=== PATIENT | male | born 1990 | race Caucasian/White ===

== ENCOUNTER 2024-03-06 14:47 | Emergency (ER) | payer OTHER, SELFPAY ==
[2024-03-06 14:56] VITALS: BP 162/100
--- NOTE | 2024-03-06 17:09 | ED.GENMED ---
History of Present Illness
<Little Koroma PA-C - Last Filed: 03/06/24 19:00>
General
Chief Complaint: Headache
Source: patient
Exam Limitations: none
Time Seen by Provider: 03/06/24 17:08
Nursing documentation reviewed up to this point in time: agreed with
Travel History
Have you had any contact with someone who has COVID-19?: No
Do you have any symptoms of coronavirus? Fever > 100 degrees, chills, cough, shortness of breath, sore throat, loss of taste or smell, muscle aches, or headache?: No
History of Present Illness
History of Present Illness:
33-year-old male no past medical history in emergency department today with bilateral temporal swelling and discomfort for the past few months. Patient states that its gotten worse the past few weeks. Patient states that he has been getting over a
viral respiratory infection for the past few months he states that he has had persistent symptoms. Patient states that he no longer has a cough states that he has occasional congestion. Patient states that when he feels the swelling most when he
is chewing. Patient states that he noticed swelling in the mirror as well. Patient denies any temporal pain. Patient also states that he has mild pain by his right eye, feels a pressure. Patient states he developed a headache today. Patient
does not follow with a primary care provider. Patient denies any shortness of breath, chest pain, abdominal pain, nausea, vomiting, dizziness, lightheadedness. Patient denies any medical history, takes no medications daily. Patient states that he
does grind his teeth at night and thinks that his temporal discomfort may be related to this. Patient has no medication allergies.
Review of Systems
<Little Koroma PA-C - Last Filed: 03/06/24 19:00>
Review of Systems
All Other Systems: ROS reviewed and negative except as documented in HPI and ROS
Phy Exam
<Little Koroam PA-C - Last Filed: 03/06/24 19:00>
Physical Exam
Physical Exam:
General: Patient is well-appearing no acute distress
Skin: Warm and dry, no rashes or lesions
Head: Normocephalic, atraumatic. No obvious soft tissue swelling at the temporal areas. No tenderness to palpation of the temporal arteries. No tenderness palpation of the bones of the skull. No facial tenderness.
Eyes: EOMs intact, PERRLA. No scleral injection. Conjunctiva clear bilaterally.
Throat: No pharyngeal erythema, no tonsillar hypertrophy, no tonsillar exudates.
Cardiac: Regular rate and rhythm, no murmurs
Pulm: Normal respiratory effort.
Neuro: CN II-XII intact, no focal neurologic deficit.
Course
<Little Koroma PA-C - Last Filed: 03/06/24 19:00>
Orders/Labs/Results
Orders:
Orders
03/06/24 17:30
CT Head W/o Iv Contrast Urgent
Comment:
Reason For Exam: right eye pressure, temporal pain and fullness
CT Sinuses W/o Iv Contrast Urgent
Comment:
Reason For Exam: right eye pressure, temporal pain and fullness
Vital Signs
Initial and Last Documented VS:
Initial Vital Signs
Temp Pulse Resp BP Pulse Ox
98.2 F 96 18 162/100 99
03/06/24 14:56 03/06/24 14:56 03/06/24 14:56 03/06/24 14:56 03/06/24 14:56
Last Documented Vital Signs
Temp Pulse Resp BP Pulse Ox
98.2 F 96 18 162/100 99
03/06/24 14:56 03/06/24 14:56 03/06/24 14:56 03/06/24 14:56 03/06/24 14:56
<Kevon Ashraf DO - Last Filed: 03/06/24 18:50>
Orders/Labs/Results
Orders:
Orders
03/06/24 17:30
CT Head W/o Iv Contrast Urgent
Comment:
Reason For Exam: right eye pressure, temporal pain and fullness
CT Sinuses W/o Iv Contrast Urgent
Comment:
Reason For Exam: right eye pressure, temporal pain and fullness
Vital Signs
Initial and Last Documented VS:
Initial Vital Signs
Temp Pulse Resp BP Pulse Ox
98.2 F 96 18 162/100 99
03/06/24 14:56 03/06/24 14:56 03/06/24 14:56 03/06/24 14:56 03/06/24 14:56
Last Documented Vital Signs
Temp Pulse Resp BP Pulse Ox
98.2 F 96 18 162/100 99
03/06/24 14:56 03/06/24 14:56 03/06/24 14:56 03/06/24 14:56 03/06/24 14:56
<Little Koroma PA-C - Last Filed: 03/06/24 19:00>
MDM/Problems Addressed
Differential Diagnosis Includes:
Differentials include sinusitis, tension headache, temporal arteritis, trigeminal neuralgia, lipoma
MDM/Problems Addressed:
Temporal swelling
Chronic conditions affecting care:
N/A
Acute Exacerbation and/or Progression of Chronic Illness:
N/A
<Little Koroma PA-C - Last Filed: 03/06/24 19:00>
*Pulse Oximetry
Patient hypoxic: no
*Critical Care Note
Total Time (30-74mins, 75-104mins- exclusive of procedures): Not Applicable
Data Reviewed
Review of Other/Old Records Reveals: Records (Reviewed ER physician documentation from 03/12/2023) and Discharge Summary (No discharge summary in [facility] to review)
Source: patient and records
<Little Koroma PA-C - Last Filed: 03/06/24 19:00>
Patient Management
Escalation/DeEscalation of care consider admission/obs:
33-year-old male presenting emergency department today with concerns of bilateral temporal swelling. Patient denies any temporal pain. Patient denies any vision loss. On exam, I am not able to appreciate any swelling. Of note, patient states
that he has had respiratory symptoms for past few months, feels like he has had lingering symptoms. His CT head and sinuses here in emergency department revealed some mild sinus disease as well as possible adenoidal swelling. Discussed with
patient importance of following up with an ENT with these findings. Patient in agreement with plan, will call ENT on Friday. Will send patient home on Medrol Dosepak. Patient is medically stable for discharge. I suspect his symptoms are likely a
combination of his sinus disease as well as his teeth removed/TMJ symptoms.
ED Attending Note
<Little Koroma PA-C - Last Filed: 03/06/24 19:00>
-
Portions of this chart may have been created with voice recognition software.� Occasional wrong word or��sound alike� substitutions may have occurred due to the inherent limitations of voice recognition software.
<Kevon Ashraf DO - Last Filed: 03/06/24 18:50>
ED Attending Note
Patient seen and examined by attending physician: Yes
I performed the substantive portion of visit, reviewed & personally made and approve the management plan that is documented in note by myself or KAT.: Yes
ED Attending Note:
Seen with PA examined independently sinus congestion swelling at the temples imaging noted, patient was recently diagnosed with TMJ will give short course of steroids, follow-up with PCP/ENT
Discharge Plan
Departure
Patient Disposition: Home (Routine Discharge)
Date of Disposition: 03/06/24
Time of Disposition: 18:33
Patient with high blood pressure during this ER visit?: Yes
Condition: Good
Discharge Problem:
Sinusitis
Instructions: Sinusitis, Adult (DC), Headache, Adult (DC), BLOOD PRESSURE
Prescriptions:
New
methylprednisolone [Medrol (Jesús)] 4 mg tablets,dose pack
See Rx Instructions .ROUTE .COMPLEX Qty: 21 0RF
Rx Instructions:
for 6 days
Referrals:
Jakob Chavez MD [Active] - Call in 1-3 days for appt
UNKNOWN - PT DOES,NOT KNOW [Family Provider] -
Activity Restrictions/Additional Instructions:
Your CT scan revealed mild sinusitis as well as possible enlargement of your adenoid tonsils. We have given you a referral for an ENT physician, please call Friday to schedule an appointment for follow-up.
We have sent a Medrol Dosepak to your pharmacy. This may help with some of the swelling and inflammation, as well as her sinus symptoms. Please follow dose pack instructions.
Please return to emergency department for any concerns.
Please follow-up with your primary care provider.
Interventions
Interventions:
*Risk Screen - Suicide Last Done: 03/06/24 14:56
*General Assessment Last Done: 03/06/24 14:56
*Neglect/Abuse Screening Last Done: 03/06/24 14:56
*ED COVID-19 Vaccine History Last Done: 03/06/24 14:56
ED- Neurological Assessment Last Done: 03/06/24 16:25
Discharge Date and Time
Print Language: CITIZEN [place]
== END 2024-03-06 19:00 | disposition home or self-care (01) ==
LOC: EMR 14:47
PROVIDERS: EMERGENCY PHYSICIAN Emergency Medicine
DX: J01.90 Acute sinusitis, unspecified (principal); R51.9 Headache, unspecified
CPT/HCPCS: 99284; 70450; 70486